=== PATIENT | female | born 1955 | race Caucasian/White ===

== ENCOUNTER 2024-07-27 08:47 | Outpatient (CLI) | payer MEDICARE, OTHER ==
--- NOTE | 2024-07-27 16:02 | RADIOLOGY REPORT ---
Procedure: MR MRI LOWER EXTREMITY LEFT 07/27/2024 08:43 AM Indication: PAIN IN LEFT FOOT COMPARISON: None TECHNIQUE: Multisequence multiplanar imaging was performed. FINDINGS: Extensor tendons: A 2 x 1 cm ganglion cyst is noted deep to flexor digitorum tendons extending to sin us tarsi. No evidence of tendinosis or tendon tear. Flexor tendons: Mild fluid distention of the tendon sheaths noted without evidence of tendinosis or t endon tear. Peroneal tendons: Unremarkable. Syndesmotic ligaments: Unremarkable. Medial stabilizer ligaments: Unremarkable. Lateral stabilizer complex: Thickening and signal alteration of the anterior talofibular ligament. Sinus Tarsi: Mild edema noted. The interosseous ligaments are intact. A 2 cm ganglion noted leading from sinus tarsi to the dorsal lateral aspect of the ankle. Tarsal tunnel: Unremarkable. Achilles tendon: Unremarkable. Plantar fascia: Unremarkable. Bones/Joints: The ankle mortise and syndesmotic space are maintained. Talar dome is intact. No join t effusion. Other: There is thinning of heel fat pad measuring 10 mm in thickness alteration of signal with T1 hy pointense IR hyperintense signal. IMPRESSION: 1. Mild flexor and extensor tenosynovitis with no evidence of tendinosis or tendon tear.A 2. Findings suggestive of sinus tarsi syndrome. A 2 cm ganglion cyst is noted extending from sinus t arsi to the dorsal lateral aspect of the ankle with mild mass effect on the extensor digitorum tendon s. 3. 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 No signs of plan tar fasciitis. 4. Chronic ATFL sprain.
== END 2024-07-27 23:59 | disposition home or self-care (01) ==
LOC: MRI02 08:47
PROVIDERS: ATTEND Podiatrist Foot & Ankle Surgery
DX: S93.492A Sprain of other ligament of left ankle, initial encounter (principal); R26.2 Difficulty in walking, not elsewhere classified; M79.672 Pain in left foot; M76.822 Posterior tibial tendinitis, left leg; Q74.2 Other congenital malformations of lower limb(s), including pelvic girdle; M67.472 Ganglion, left ankle and foot; M65.872 Other synovitis and tenosynovitis, left ankle and foot; X58.XXXA Exposure to other specified factors, initial encounter; Y93.89 Activity, other specified; Y92.89 Other specified places as the place of occurrence of the external cause; Y99.8 Other external cause status
CPT/HCPCS: 73721